=== PATIENT | male | born 1980 | race Caucasian/White ===

== ENCOUNTER → 2017-08-11 | Outpatient (REF) ==
[2017-08-11 10:59] LABS: RUBELLA IgG QUALITATIVE IMMUNE (IMMUNE)
[2017-08-13 10:19] LABS: RUBEOLA IgG ANTIBODY <25.0 AU/mL (Immune >29.9)
== END ==
LOC: M LAB 09:25
DX: Z00.00 Encounter for general adult medical examination without abnormal findings (principal)

== ENCOUNTER 2020-02-01 08:55 | Emergency (ER) | payer OTHER | END 2020-02-01 09:35 | disposition home or self-care (01) | LOC: M ED 08:55 | DX: T22.092A Burn of unspecified degree of multiple sites of left shoulder and upper limb, except wrist and hand, initial encounter (principal); X16.XXXA Contact with hot heating appliances, radiators and pipes, initial encounter; Y92.89 Other specified places as the place of occurrence of the external cause; Y99.0 Civilian activity done for income or pay; Z79.899 Other long term (current) drug therapy; Z88.0 Allergy status to penicillin; Z88.1 Allergy status to other antibiotic agents ==